=== PATIENT | female | born 1960 | race African-American/Black ===

== ENCOUNTER → 2019-12-07 | Outpatient (CLI) | payer OTHER ==
--- NOTE | 2019-12-13 12:48 | RAD ---
DATE: December 07, 2019 EXAM: MAMMO TIFFANY SCREENING BILATERAL HISTORY: Screening study. COMPARISON: 2016 and 2019 performed at [facility]. This study was interpreted with the benefit of Computerized Aided Detection (CAD). 2-D digital mammographic views of both breasts were performed in the CC and MLO projections. 3-D digital tomosynthesis images of both breasts were performed in the CC and MLO projections and reviewed on a computer workstation. FINDINGS: Breast Density: SCATTERED The breast parenchyma shows scattered fibroglandular densities. Breast parenchyma level B.. There are 3 new nodules within the central aspect of the right breast in the MLO projection at and just superior to the nipple line. This is seen on tiffany images 16 and 26 in the MLO projection. There are 2 nodules seen within the lateral aspect of the right breast in the CC projection. This is seen on tiffany images 21 and 32 in the CC projection. The left breast is stable. No clustering of pleomorphic microcalcifications are evident on either side. IMPRESSION: New right breast nodules. Recommend right breast sonography of the entire right breast. BI-RADS CATEGORY: 0 INCOMPLETE: NEEDS ADDITIONAL IMAGING EVALUATION AND/OR PRIOR MAMMOGRAMS FOR COMPARISON. RECOMMENDED FOLLOW-UP: ADD ADDITIONAL IMAGING PQRS compliance statement: Patient information was entered into a reminder system with a target due date now for the next imaging study. Mammography is a sensitive method for finding small breast cancers, but it does not detect them all and is not a substitute for careful clinical examination. A negative mammogram does not negate a clinically suspicious finding and should not result in delay in biopsying a clinically suspicious abnormality. "Our facility is accredited by the [employer] Mammography Program." The patient's breast density may affect the ability of mammography to detect breast cancer. There are 4 categories of breast density, A, B, C and D. Breast density A means that most of the breast tissue is replaced with adipose tissue and therefore is not dense. Breast density B means that the breast tissue is mildly dense and scattered. Breast density C means that the breast tissue is heterogeneously dense. Breast density D means that the breast tissue is very dense. Breast densities especially C and D may decrease the sensitivity of mammography to detect breast cancer. Therefore, the patient may benefit from 3-D breast mammography (3D breast tomography) as a part of their screening mammogram. Insurance may or may not pay for this additional imaging. The patient's breast density based on today's mammogram is category B.
== END | disposition home or self-care (01) ==
LOC: MAMMO 13:28
PROVIDERS: ATTEND Nurse Practitioner Family
DX: Z12.31 Encounter for screening mammogram for malignant neoplasm of breast (principal); N63.20 Unspecified lump in the left breast, unspecified quadrant; N63.10 Unspecified lump in the right breast, unspecified quadrant
CPT/HCPCS: 77063; 77067

== ENCOUNTER → 2019-12-17 | Outpatient (CLI) | payer OTHER ==
--- NOTE | 2019-12-17 13:40 | RAD ---
Examination: Right breast ultrasound INDICATION: 59-year-old woman with abnormal right mammogram, recalled from screening for new nodular densities in the right breast. COMPARISON: Mammogram of December 07, 2019. FINDINGS: Ultrasound of the entire right breast shows fatty breast tissue with no dominant mass, suspicious shadowing or architectural distortion. The nipple areolar complex and visualized skin is unremarkable. The questioned nodules in the right breast most likely represent fatty tissue, potentially representing lipomas or fat necrosis that is not sonographically visible. In correlation with the prior mammogram, findings are considered benign. IMPRESSION: Benign findings on right breast ultrasound. No evidence of malignancy. Recommend return to routine screening next due in one year. BI-RADS Category 2 Benign findings Patient entered into a reminder system with target due date for next mammogram.
== END | disposition home or self-care (01) ==
LOC: US 12:40
PROVIDERS: ATTEND Nurse Practitioner Family
DX: R92.8 Other abnormal and inconclusive findings on diagnostic imaging of breast (principal)
CPT/HCPCS: 76641